=== PATIENT | male | born 1950 ===

== ENCOUNTER 2017-12-04 10:53 | Emergency (ER) | payer MEDICARE ==
[2017-12-04 11:01] VITALS: BP 189/84; PULSE 64; RESP 16; TEMP 97.4
[2017-12-04] MEDS ORDERED: PROPARACAINE 0.5% OPHTH DROPS 15 ML BTL RIGHT EYE STA (11:13)
[2017-12-04] MEDS ORDERED: PROPARACAINE 0.5% OPHTH DROPS 15 ML BTL ONE (11:14)
[2017-12-04] MEDS ORDERED: TOBRA-DEXAMET 0.3-0.1% OPHTH DROPS 2.5 ML BTL RIGHT EYE STA (11:40)
--- NOTE | 2017-12-04 11:50 | ED ---
General Adult HPI - General Chief complaint: Eye Problems Stated complaint: Eye discomfort Post Surgical Time Seen by Provider: 12/04/17 11:04 Source: patient, family, RN notes reviewed Mode of arrival: ambulatory Limitations: no limitations - History of Present Illness Initial comments: Patient is a pleasant [age]-year-old male presenting to the emergency Department with right eye discomfort. Patient did have cataract surgery 5 days ago in [place]. Patient is here visiting and traveling home today. Patient complains of discomfort/irritation to the right eye. Patient states it is not painful. Patient has noticed some redness and clear drainage. No history of similar symptoms previously. Patient is unclear however does not believe he is supposed be on eyedrops at this time. No left eye involvement. No loss of vision or decreased vision. No recent trauma. - Related Data Allergies Allergy/AdvReac Type Severity Reaction Status Date / Time No Known Allergies Allergy Verified 12/04/17 10:58 Review of Systems ROS Statement: Those systems with pertinent positive or pertinent negative responses have been documented in the HPI. ROS Other: All systems not noted in ROS Statement are negative. Constitutional: Denies: fever Eyes: Reports: as per HPI, eye discharge ENT: Denies: throat pain Respiratory: Denies: cough Cardiovascular: Denies: chest pain Endocrine: Denies: fatigue Gastrointestinal: Denies: abdominal pain Genitourinary: Denies: dysuria Musculoskeletal: Denies: back pain Skin: Denies: rash Neurological: Denies: weakness Past Medical History Past Medical History: Hypertension Past Surgical History: Pacemaker Additional Past Surgical History / Comment(s): valve replacement Past Psychological History: Anxiety Smoking Status: Never smoker Past Alcohol Use History: Daily Past Drug Use History: None Reported General Exam Limitations: no limitations General appearance: alert, in no apparent distress Head exam: Present: atraumatic Eye exam: Present: PERRL, EOMI, conjunctival injection (On the right side). Absent: nystagmus, periorbital swelling, periorbital tenderness Pupils: Present: other (Flurosyn staining with questionable small amount of uptake at the inferior lateral border of iris. No foreign body) Expanded Eyelids: Normal Inspection: Bilateral Pupils: Regular, Round: Bilateral, Reactive: Bilateral Sclera/Conjunctival: Normal Inspection: Left, Injection: Right Posterior chamber: Normal Inspection: Bilateral (Limited exam) IOP (R) in mmH ENT exam: Present: normal oropharynx Neck exam: Present: normal inspection Respiratory exam: Present: normal lung sounds bilaterally Cardiovascular Exam: Present: regular rate, normal rhythm GI/Abdominal exam: Present: soft. Absent: tenderness Course Vital Signs 12/04/17 10:58 Temperature 97.4 F L Pulse Rate 64 Respiratory 16 Rate Blood Pressure 189/84 O2 Sat by Pulse 98 Oximetry - Reevaluation(s) Reevaluation #1: 12/04/17 11:42 Case was discussed with ophthalmology, Dr. Bailey who does feel symptoms are likely consistent with an iritis. He does recommend patient follow-up tomorrow with his gizzard puller. He does recommend TobraDex 1 drop 4 times a day of solution. Pharmacy was notified and stated are TobraDex is indeed a solution. Disposition Clinical Impression: Iritis Disposition: HOME SELF-CARE Condition: Stable Instructions: Iritis (ED) Additional Instructions: Please follow-up tomorrow with your gizzard puller. If you are still in town you could also follow-up with our gizzard puller tomorrow, number provided. Return for loss of vision, increased pain, swelling, redness, fever, worsening symptoms or other concerns. Use TobraDex drops 1 drop 4 times a day until otherwise followed up and advised by your gizzard puller. Is patient prescribed a controlled substance at d/c from ED?: No Referrals: Luca Corrigan MD [STAFF PHYSICIAN] - 1-2 days Time of Disposition: 11:49
== END 2017-12-04 12:11 | disposition home or self-care (01) ==
LOC: EC 10:53
DX: H20.9 Unspecified iridocyclitis (principal); Z95.0 Presence of cardiac pacemaker; Z95.2 Presence of prosthetic heart valve; Z98.890 Other specified postprocedural states
CPT/HCPCS: 99283